=== PATIENT | female | born 1980 | race Caucasian/White ===

== ENCOUNTER → 2022-12-28 | Outpatient (CLI) | payer BC | LOC: RAD 09:15 | DX: K80.20 Calculus of gallbladder without cholecystitis without obstruction (principal); R25.3 Fasciculation; D80.1 Nonfamilial hypogammaglobulinemia; R77.1 Abnormality of globulin; R20.2 Paresthesia of skin; M62.89 Other specified disorders of muscle ==

== ENCOUNTER → 2024-04-01 | Outpatient (CLI) | payer BC | LOC: RAD 09:45 | DX: N83.201 Unspecified ovarian cyst, right side (principal) ==